=== PATIENT | male | born 1955 | race Two or more races ===

== ENCOUNTER 2024-12-16 11:32 | Emergency (ER) | payer MEDICARE, MEDICAID ==
[~2024-12-16] VITALS: Ht 180.3 cm; Wt 111.0 kg
[2024-12-16 11:38] VITALS: TEMP 36.9; O2SAT 99
[2024-12-16] MEDS: LIDOCAINE HCL/PF 1% 10 MG/ML 5ML VIAL INFIL ONE (12:30)
[2024-12-16] MEDS: TETANUS, DIPHTHERIA, PERTUSSIS VAC/PF 0.5ML (>10YR OLD) IM ONE (12:48)
[2024-12-16] MEDS: ACETAMINOPHEN 325MG TABLET PO ONE (12:48)
[2024-12-16] MEDS: BACITRACIN ZINC OINT UDPKT TOP ONE (12:49)
[2024-12-16] MEDS ORDERED: BO1 TP (15:14)
[2024-12-16 15:42] VITALS: BP 159/84; PULSE 72; RESP 18; O2SAT 99
== END 2024-12-16 15:56 | disposition home or self-care (01) ==
LOC: ER 11:32
DX: S61.512A Laceration without foreign body of left wrist, initial encounter (principal); I10 Essential (primary) hypertension; Z91.52 Personal history of nonsuicidal self-harm; W26.0XXA Contact with knife, initial encounter; Y93.89 Activity, other specified; Y92.89 Other specified places as the place of occurrence of the external cause; Y99.8 Other external cause status
CPT/HCPCS: 99283; 90715; 12002; 90471; J2003